=== PATIENT | male | born 1960 | race Hispanic/Latino ===

== ENCOUNTER 2020-07-12 07:24 | Day surgery (SDC) | payer BC ==
[2020-07-09 12:55] LABS: Basophils % 0.8 % (0-1.3); Hematocrit 47.7 % (39.6-49.0); Lymphocytes % 29.7 % (15.3-44.8); MPV 9.1 fL (7.6-11.3); RBC Red Blood Cell Count 5.45 M/uL (4.33-5.43)
[2020-07-09 13:09] LABS: Potassium 3.9 mmol/L (3.5-5.1)
--- NOTE | 2020-07-09 13:33 | RAD REPORT ---
EXAM DESCRIPTION: RAD - Chest Pa And Lat (2 Views) - 07/09/2020 1:25 pm CLINICAL HISTORY: PREOP, SAME DAY SURGERY Chest pain. COMPARISON: No comparisons FINDINGS: The lungs are clear. The heart is normal in size. No displaced fractures. IMPRESSION: No acute or concerning finding suspected.
--- NOTE | 2020-07-10 07:56 | EKG ---
Test Date: 2020-07-09 Test Time: 12:59:31 Land Inspector: JESSICA MEASUREMENT RESULTS: Intervals: Rate: 72 MT: 140 QRSD: 82 QT: 378 QTc: 413 [place]: P: 20 MT: 140 QRS: -7 T: 3 INTERPRETIVE STATEMENTS: Normal sinus rhythm with sinus arrhythmia Normal ECG No previous ECG available for comparison Electronically Signed On 07-10-20 07:54:18 MANAGER OF DISASTER RECOVERY by Marcus Oviedo
[2020-07-12] MEDS ORDERED: CEFAZOLIN/SWI 1gm 1 GM/10 ML SYR ONE (07:54)
[2020-07-12] MEDS ORDERED: Ringers Lactate 1,000 ML IV ONE (07:54)
[2020-07-12] MEDS ORDERED: BUPIVACAINE 0.5% PF 10 ML VIAL ONE (08:25)
[2020-07-12] MEDS ORDERED: FENTANYL CITR 100 MCG/2 ML ONE (08:43)
[2020-07-12] MEDS ORDERED: MIDAZOLAM HCL 2 MG/2 ML INJ ONE (08:43)
[2020-07-12] MEDS ORDERED: LIDOCAINE 1% MPF 5 ML VIAL ONE (08:43)
[2020-07-12] MEDS ORDERED: propofoL 200 MG/20 ML VIAL IV ONE (08:43)
[2020-07-12] MEDS ORDERED: KETOROLAC 30 MG/ML INJ ONE (09:05)
--- NOTE | 2020-07-12 09:05 | P.BOP ---
Preoperative diagnosis: right thigh intramuscular mass Postoperative diagnosis: same Primary procedure: Excisional biopsy of right thigh intramuscular mass 9x6cm Estimated blood loss: <10cc Specimen: mass Findings: right thigh intramuscular mass Anesthesia: General Complications: None Transferred to: Recovery Room Condition: Good
[2020-07-12] MEDS ORDERED: ONDANSETRON 4 MG/2 ML VIAL ONE (09:20)
[2020-07-12] MEDS ORDERED: CODEINE 30MG/APAP 300MG TAB ONE (10:31)
[2020-07-12 10:44] VITALS: BP 120/75; TEMP 96.6; O2SAT 96
--- NOTE | 2020-07-12 11:40 | DS ---
Date of Discharge: 07/12/2020 Diagnosis: Right thigh intramuscular mass. Procedure: Excisional biopsy of right thigh intramuscular mass. Disposition: Home. Activity: As tolerated. No heavy lifting. Plan: Follow up in my office in 1 week. Call for an appointment at [phone]. Keep area dry for 48 hours, then may shower. Keep Steri-Strips intact. Medications: Include Tylenol No.3 q.4 hours p.r.n. pain, Bactrim DS p.o. b.i.d. CATIA/WILLIAM Voice ID: [id number] Report ID: [id number]
--- NOTE | 2020-07-12 11:40 | OP ---
Date of Procedure: 07/12/2020 Surgeon: Ángel Moura MD Preoperative Diagnosis: Right thigh intramuscular mass, tender. Postoperative Diagnosis: Right thigh intramuscular mass, tender. Procedure Performed: Excisional biopsy of right thigh intramuscular tender mass, 9 x 6 cm. Specimen: Intramuscular mass. Findings: Right thigh intramuscular mass. Indications: This is the case of a 60-year-old patient who has a mass in the right inner thigh lower distal region. Increasing in size, giving pain and discomfort. He wants that excised. The benefit s, alternatives, and risks of excision were fully explained which include, but not limited to infecti on, bleeding, damage to adjacent structures, anesthesia complication, chronic numbness, chronic pain, CA and even . He also understands this may not relieve any symptoms. He may need more than one surgical intervention. He understands the chance of recurrence. The area of concern was marked by me and the patient in the holding room. Description Of Procedure: The patient was brought to the operating room, placed in supine position. Anesthesia was done without complication. Right thigh was prepped and draped in a usual sterile fas hion. A time-out was called. The area of concern was previously marked, so we were able to inject l ocal anesthetic and then make an incision over the area of the mass. Incision was carried down to de ep subcutaneous tissue and then after that, we went into the area of the right medial thigh. We noti rene noted the patient has an intramuscular mass. The muscle fibers were . We did not cut t hem and we were able to enucleate this mass after we did that. The area was irrigated. Hemostasis w as obtained. The muscle was approximated with chromic. The subcutaneous tissue was closed in layers with 3-0 chromic in 2 layers and then 4-0 PDS. Sponge count, instrument counts correct. Hemostasis was obtained before closure. The patient tolerated the procedure well. The patient was sent to [facility] in stable condition. CATIA/WILLIAM Voice ID: [id number] Report ID: [id number]
== END 2020-07-12 10:35 | disposition home or self-care (01) ==
LOC: OR 07:24
PROVIDERS: ATTEND Surgery
PROC: 0JBL0ZZ Excision of Right Upper Leg Subcutaneous Tissue and Fascia, Open Approach (ICD-10-PCS; 2020-07-12)
PROC: 0JQL0ZZ Repair Right Upper Leg Subcutaneous Tissue and Fascia, Open Approach (ICD-10-PCS; principal; 2020-07-12 08:30)
DX: D17.9 Benign lipomatous neoplasm, unspecified (principal); Z20.822 Contact with and (suspected) exposure to COVID-19
CPT/HCPCS: 93005; 85025; 80048; 36415; 88304; 71046; 11406; 12034; U0002; J2704; J2250; J3010; J0690; J7120; J2405; 88305

== ENCOUNTER 2022-05-26 09:12 | Emergency (ER) | payer BC ==
--- OUTSIDE RECORDS SUMMARY | 2022-05-26 09:15 | XMS REPORT | Continuity of Care Document ---
:1960 Author Organization [facility] t Address [address] [place] [address] Care Team Providers Name Role Phone Pcp, Patient Does Not Have A Primary Care Physician +[id number] SARI TENORIO Attending Clinician Unavailable Vaccine, Ang Db Cbc Fam Attending Clinician Unavailable Sari Tenorio MD Attending Clinician Doctor Unassigned, [place] Attending Clinician Unavailable Payers Payer Name Policy Type Policy Number Effective Date Expiration Date Rodrick berg [facility] [id number] 2017 00:00:00 [facility] [id number] 2017 00:00:00 BLUE/ESSENTIALS Problems This patient has no known problems. Allergies, Adverse Reactions, Alerts Allergy Allergy Status Severity Reaction(s) Onset Inactive Treating Comm ents Source Name Type Date Date Clinician NO KNOWN Drug Active Univers ALLERGIE Class ity of [facility] Social History Social Habit Start Date Stop Date Quantity Comments Source Exposure to Not sure [facility] SARS-CoV-2 (event) Medica l Branch Sex Assigned At [birth year] [facility] 00:00:00 00:00:00 Medical Branch Smoking Status Start Date Stop Date Source Unknown if ever smoked [facility] Medications This patient has no known medications. Immunizations Ordered Filled Immunization Date Status Comments [facility] e Immunization Name Name SARS-COV-2 COVID-19 2021-04-22 Completed Unive rsity of PFIZER VACCINE 00:00:00 [facility] Covid-19 Vaccine 2020-07-[address] [facility] MRNA (PF) 12yr+ 00:00:00 Medical C enter (Pfizer/BioNTech)(I [id number]) Covid-19 Vaccine 2020-07-[address] [facility] MRNA (PF) 12yr+ 00:00:00 Medical C enter (Pfizer/BioNTech)(I [id number]) Procedures Procedure Date / Time Performed Performing Clinician Sourc e SARS-COV-2 COVID-19 2021-04-22 21:15:50 Doctor Unassigned, No [facility] [place] VACCINE,0.3ML,IM Name Medical Branch (PFIZER) CONSENT/REFUSAL FOR 2021-04-22 19:59:41 Doctor Unassigned, No [facility] [place] DIAGNOSIS AND Name Medical Branch TREATMENT Plan of Care Planned Activity Planned Date Details Comments Source Future Scheduled 2022-05-[address] [facility] Test 00:00:00 (12+) [code = Medical Center DEPRESSION SCREENING (12+)] Future Scheduled 2022-01-12 INFLUENZA VACCINE (#1) [facility] 00:00:00 [code = INFLUENZA Medical Ce nter VACCINE (#1)] Future Scheduled 2020-12-29 COVID-19 VACCINE (3 - [facility] 00:00:00 Booster for Pfizer Medical C enter series) [code = COVID-19 VACCINE (3 - Booster for Pfizer series)] Future Scheduled 2009 SHINGLES VACCINES ([address] [facility] Test 00:00:00 2) [code = SHINGLES Medical Center VACCINES (1 of 2)] Future Scheduled 1994 Lipid panel (procedure) [facility] Test 00:00:00 [code = 01672556] Medical Ce nter Future Scheduled 1978 DTAP/TDAP/TD VACCINES [facility] 00:00:00 (1 - Tdap) [code = Medical C enter DTAP/TDAP/TD VACCINES (1 - Tdap)] Future Scheduled 1977 HEPATITIS C SCREENING [facility] 00:00:00 [code = HEPATITIS C Medical Center SCREENING] Future Scheduled [address] [facility] Test 00:00:00 Counseling and Medical Cente r Screening (12+) [code = Tobacco Cessation Counseling and Screening (12+)] Future Scheduled 1959 CT Colonography (combo) [facility] Test 00:00:00 [code = CT Colonography [facility] (combo)] Future Scheduled 1959 Screening for malignant [facility] Test 00:00:00 neoplasm of colon Medical Ce nter (procedure) [code = 361666124] Future Scheduled 1959 Screening for malignant [facility] Test 00:00:00 neoplasm of colon Medical Ce nter (procedure) [code = 534512772] Future Scheduled 1959 Screening for malignant [facility] Test 00:00:00 neoplasm of colon Medical Ce nter (procedure) [code = 672620662] Future Scheduled 1959 Screening for malignant [facility] Test 00:00:00 neoplasm of colon Medical Ce nter (procedure) [code = 262981339] Future Scheduled 1960 Sigmoidoscopy [code = [facility] 00:00:00 Sigmoidoscopy] Medical Cente r Encounters Start End Encounter Admission Attending Care Care Encounter Source Date/Time Date/Time Type Type Clinicians Facility Department ID 2021-04-22 2021-04-22 Outpatient R [facility] [id number] [facility] 14:20[facility]00 [facility] 2021-04-22 2021-04-22 Imm/Inj Vaccine, Ang Db Cbc Fam [facility] [id number]. [id number] Univers 14:04:46 14:14:46 Visit [facility] [id number] ity of [place] [id number] Severiano as MAXWELL?BLEA [id number] [address] MEDICAL OFFICE BUILDING 2021-04-22 2021-04-22 Orders Doctor EBEN [id number] Univers 00:00:00 00:00:00 Only Unassigned, BENY [id number] ity of [place] [facility] [id number] Severiano as [id number] [address] 2020-07-29 2020-07-29 Outpatient [facility] [id number] [facility] 00:00:00 00:00:00 2020-07-08 2020-07-08 Outpatient [facility] [id number] [facility] 00:00:00 00:00:00 Results This patient has no known results.
--- NOTE | 2022-05-26 10:01 | RAD REPORT ---
EXAM DESCRIPTION: CT - Head Brain Wo Cont - 05/26/2022 9:47 am CLINICAL HISTORY: dizzy Headache, drowsiness COMPARISON: No comparisons TECHNIQUE: All CT scans are performed using dose optimization technique as appropriate and may inclu de automated exposure control or mA/KV adjustment according to patient size. FINDINGS: No intracranial hemorrhage, hydrocephalus or extra-axial fluid collection.No areas of brai n edema or evidence of midline shift. The paranasal sinuses and mastoids are clear. The calvarium is intact. IMPRESSION: No acute intracranial abnormality.
--- NOTE | 2022-05-26 10:08 | RAD REPORT ---
EXAM DESCRIPTION: RAD - Chest Single View - 05/26/2022 9:49 am CLINICAL HISTORY: dizzy Chest pain. COMPARISON: Chest Pa And Lat (2 Views) dated 07/09/2020 FINDINGS: Portable technique limits examination quality. The lungs are grossly clear. The heart is normal in size. No displaced fractures. IMPRESSION: No acute intrathoracic process suspected.
[2022-05-26 10:13] LABS: Absolute Lymphocytes (CBC) 2.3 K/uL (0.7-4.9); Hematocrit 47.4 % (39.6-49.0); Lymphocytes % 36.2 % (15.3-44.8); MCV 88.5 fL (80-100); MPV 8.2 fL (7.6-11.3); RBC Red Blood Cell Count 5.36 M/uL (4.33-5.43)
[2022-05-26 10:16] LABS: Protime INR 1.01
[2022-05-26 10:38] LABS: SARS-CoV-2 Antigen Rapid Res Negative (Negative)
[2022-05-26 10:44] LABS: Albumin 4.1 g/dL (3.4-5.0); Bilirubin Direct 0.2 mg/dL (0-0.2); Bilirubin Total 0.7 mg/dL (0.2-1.0); Magnesium 2.3 mg/dL (1.6-2.4); Potassium 4.3 mmol/L (3.5-5.1); Protein, Total 7.9 g/dL (6.4-8.2); Troponin High Sensitivity 13.8 pg/mL (<58.9)
--- NOTE | 2022-05-26 11:40 | RAD REPORT ---
EXAM DESCRIPTION: CT - Head angio - 05/26/2022 11:26 am CLINICAL HISTORY: lightheadedness Headache, drowsiness COMPARISON: Head Brain Wo Cont dated 05/26/2022 TECHNIQUE: CT angiography of the head was performed with MIPs. All CT scans are performed using dose optimization technique as appropriate and may include automated exposure control or mA/KV adjustment according to patient size. FINDINGS: No evidence of aneurysm is detected. No flow-limiting stenosis or vascular malformation id entified. Antegrade flow is seen in the vertebral arteries. The vertebral arteries are codominant. The visualized dural venous sinuses are patent. IMPRESSION: No significant flow abnormality is detected.
--- NOTE | 2022-05-26 12:21 | RAD REPORT ---
EXAM DESCRIPTION: RAD - Hand Left 2 View - 05/26/2022 12:15 pm CLINICAL HISTORY: PAIN COMPARISON: No comparisons FINDINGS: No evidence of fracture or dislocation.
--- NOTE | 2022-05-26 12:22 | RAD REPORT ---
EXAM DESCRIPTION: RAD - Hand Right 2 View - 05/26/2022 12:15 pm CLINICAL HISTORY: PAIN COMPARISON: No comparisons FINDINGS: No fracture or dislocation is seen.
--- NOTE | 2022-05-26 12:33 | ER ---
Nurse's Notes [facility] Name: Cherie Decker Age: 62 yrs Sex: Male : 1960 Arrival Date: 05/26/2022 Time: 09:18 Bed 20 Private MD: Beth Ash C Diagnosis: Syncope Near Presentation: 05/26 09:25 Chief complaint: Patient states: he started feeling dizzy on Sunday05/23/2022, and two ap3 of the times he started feeling dizzy he got nauseated. patient states that the symptoms have been improving since Sunday, however he spoke with his PCP who recommended he come get evaluated. Coronavirus screen: At this time, the client does not indicate any symptoms associated with coronavirus-19. Ebola Screen: No symptoms or risks identified at this time. Initial Sepsis Screen: Does the patient meet any 2 criteria? No. Patient's initial sepsis screen is negative. Does the patient have a suspected source of infection? No. Patient's initial sepsis screen is negative. Risk Assessment: Do you want to hurt yourself or someone else? Patient reports no desire to harm self or others. Onset of symptoms was May 23, 2022. 09:25 Method Of Arrival: Ambulatory ap3 09:25 Acuity: CHEIKH 3 ap3 Triage Assessment: 09:28 General: Appears in no apparent distress. Behavior is calm, cooperative. Pain: Denies ap3 pain. Neuro: Level of Consciousness is awake, alert, obeys commands, Reports dizziness, since 05/23/2022, but states symptoms have been improving. Cardiovascular: Patient's skin is warm and dry. Respiratory: Airway is patent Respiratory effort is even, unlabored, Respiratory pattern is regular, symmetrical. GI: Reports nausea is only reported on Sunday05/23/2022. Historical: - Allergies: 09:27 No Known Allergies; ap3 - Home Meds: 09:27 atorvastatin oral [Active]; ap3 - PMHx: 09:27 Hypercholesterolemia; ap3 - Immunization history:: Client reports receiving the 2nd dose of the Covid vaccine, Flu vaccine is not up to date. - Social history:: Smoking status: Patient denies any tobacco usage or history of. Patient uses alcohol, only on a social basis. Screenin:28 Abuse screen: Denies threats or abuse. Nutritional screening: No deficits noted. ap3 Tuberculosis screening: No symptoms or risk factors identified. 13:04 [facility] ED Fall Risk Assessment (Adult) History of falling in the last 3 months, kb3 including since admission No falls in past 3 months (0 pts) Confusion or Disorientation No (0 pts) Intoxicated or Sedated No (0 pts) Impaired Gait No (0 pts) Mobility Assist Device Used No (0 pt) Altered Elimination No (0 pt) Score/Fall Risk Level 0 - 2 = Low Risk Oriented to surroundings, Maintained a safe environment, Educated pt \T\ family on fall prevention, incl call for assistance when getting out of bed, Assessed \T\ reinforced patient's understanding of fall precautions, Provided non-skid footwear, Hourly rounding (assess needs \T\ fall precautionary measures) done, Used ambulatory aids as needed (educated on \T\ assisted with), Used gait belt as appropriate. Assessment: 10:31 Reassessment: Patient appears in no apparent distress at this time. Patient and/or hb family updated on plan of care and expected duration. Pain level reassessed. Patient is alert, oriented x 3, equal unlabored respirations, skin warm/dry/pink. 12:05 General: Received care of pt from Apple VALLE. PT is AAO x4, denies pain. Reports feeling kb3 better. Updated regarding POC. Pt with no questions at this time. 12:05 GI: Reports nausea, improved. kb3 12:05 GI: Abdomen is flat, Bowel sounds present X 4 quads. Abd is soft and non tender. kb3 12:20 General: Updated pt regarding repeat troponin and EKG. If normal, pt to be discharged. kb3 Vital Signs: 09:25 BP 164 / 94; Pulse 77; Resp 17; Temp 98.2; Pulse Ox 98% ; Weight 88.9 kg; Height 5 ft. ap3 7 in. (170.18 cm); 10:32 BP 129 / 88; Pulse 72; Resp 15; Pulse Ox 99% on R/A; hb 11:07 BP 128 / 88; Pulse 65; Resp 14; Pulse Ox 97% on R/A; hb 12:30 BP 131 / 88; Pulse 67; Resp 18; Pulse Ox 99% on R/A; kb3 13:00 BP 144 / 87; Pulse 72; Resp 18; Pulse Ox 98% ; kb3 13:30 BP 130 / 85; Pulse 63; Resp 20; Pulse Ox 96% ; kb3 09:25 Body Mass Index 30.70 (88.90 kg, 170.18 cm) ap3 ED Course: 09:18 Patient arrived in ED. mr 09:18 Beth Ash MD is Private Physician. mr 09:27 Triage completed. ap3 09:29 Arm band placed on right wrist. ap3 09:29 Patient has correct armband on for positive identification. Adult w/ patient. ap3 09:30 Apple Maradiaga, RN is Primary Nurse. iw 09:33 Karyn Faust FNP-C is PHCP. snw 09:33 Yosef Etienne MD is Attending Physician. snw 09:49 CT Head Brain wo Cont In Process Unspecified. EDMS 09:50 XRAY Chest (1 view) In Process Unspecified. EDMS 10:05 Basic Metabolic Panel Sent. rs5 10:05 CBC with Diff Sent. rs5 10:05 LFT's Sent. rs5 10:05 Magnesium Sent. rs5 10:05 NT PRO-BNP Sent. rs5 10:05 PT-INR Sent. rs5 10:05 Troponin HS Sent. rs5 10:06 Inserted saline lock: 20 gauge in left antecubital area, using aseptic technique. Blood rs5 collected. 10:11 SARS RAPID Sent. rs5 10:12 COVID swab sent to lab. rs5 11:27 CT Head Angio In Process Unspecified. EDMS 12:17 Hand Left 2 View XRAY In Process Unspecified. EDMS 12:17 Hand Right 2 View XRAY In Process Unspecified. EDMS 12:32 Beth Ash MD is Referral Physician. snw 12:42 Troponin HS Sent. kb3 13:04 No provider procedures requiring assistance completed. kb3 13:52 IV discontinued, intact, bleeding controlled, No redness/swelling at site. Pressure kb3 dressing applied. Administered Medications: 12:59 Drug: Aspirin 81 mg Route: PO; kb3 13:10 Follow up: Response: No adverse reaction kb3 Medication: 13:04 VIS not applicable for this client. kb3 Outcome: 12:32 Discharge ordered by MD. snw 13:52 Discharged to home ambulatory, with family. kb3 13:52 Condition: stable 13:52 Discharge instructions given to patient, family, Instructed on discharge instructions, follow up and referral plans. medication usage, Demonstrated understanding of instructions, follow-up care, medications. 13:53 Patient left the ED. kb3 Signatures: Dispatcher [employer] EDMS Karyn Faust, DEWAYNE-C [employer]SEMBLER [facility]-Morisw Valdes Fidelia MaradiagaApple, RN Karen Leroy RN RN Willa Cortes RN RN ap3 Bernarda Martinez RN RN 3 Mitch Maza rs5
--- NOTE | 2022-05-26 12:33 | EDPHYS ---
Physician Documentation [facility] Name: Cherie Decker Age: 62 yrs Sex: Male : 1960 Arrival Date: 05/26/2022 Time: 09:18 Bed 20 Private MD: Beth Ash C ED Physician Yosef Etienne HPI: 05/26 09:37 This 62 yrs old Male presents to ER via Ambulatory with complaints of snw Dizziness, Nausea, Headache. 09:37 The patient or guardian reports chest pain that is located primarily in the "just feel snw off", vague nausea. 09:55 The patient has not experienced similar symptoms in the past. The patient has been snw recently seen by a physician: the patient's primary care provider, Dr. Ash yesterday, with similar presenting complaints, and was sent to the [facility] Emergency Department for further evaluation. Pt states he is feeling better but has had intermittent nausea, lightheadedness x 4 days. . Historical: - Allergies: 09:27 No Known Allergies; ap3 - Home Meds: 09:27 atorvastatin oral [Active]; ap3 - PMHx: 09:27 Hypercholesterolemia; ap3 - Immunization history:: Client reports receiving the 2nd dose of the Covid vaccine, Flu vaccine is not up to date. - Social history:: Smoking status: Patient denies any tobacco usage or history of. Patient uses alcohol, only on a social basis. ROS: 09:55 Constitutional: Negative for fever, chills, and weight loss, Eyes: Negative for injury, snw pain, redness, and discharge, ENT: Negative for injury, pain, and discharge, Neck: Negative for injury, pain, and swelling, Cardiovascular: Negative for chest pain, palpitations, and edema, Respiratory: Negative for shortness of breath, cough, wheezing, and pleuritic chest pain. 09:55 Back: Negative for injury and pain, : Negative for injury, bleeding, discharge, and swelling, MS/Extremity: Negative for injury and deformity, Skin: Negative for injury, rash, and discoloration. 09:55 Abdomen/GI: Positive for nausea. 09:55 Neuro: Positive for dizziness, headache. Exam: 09:57 Head/Face: Normocephalic, atraumatic. Eyes: Pupils equal round and reactive to light, snw extra-ocular motions intact. Lids and lashes normal. Conjunctiva and sclera are non-icteric and not injected. Cornea within normal limits. Periorbital areas with no swelling, redness, or edema. ENT: Nares patent. No nasal discharge, no septal abnormalities noted. Tympanic membranes are normal and external auditory canals are clear. Oropharynx with no redness, swelling, or masses, exudates, or evidence of obstruction, uvula midline. Mucous membranes moist. Neck: Trachea midline, no thyromegaly or masses palpated, and no cervical lymphadenopathy. Supple, full range of motion without nuchal rigidity, or vertebral point tenderness. No Meningismus. Chest/axilla: Normal chest wall appearance and motion. Nontender with no deformity. No lesions are appreciated. Cardiovascular: Regular rate and rhythm with a normal S1 and S2. No gallops, murmurs, or rubs. Normal PMI, no JVD. No pulse deficits. Respiratory: Lungs have equal breath sounds bilaterally, clear to auscultation and percussion. No rales, rhonchi or wheezes noted. No increased work of breathing, no retractions or nasal flaring. Abdomen/GI: Soft, non-tender, with normal bowel sounds. No distension or tympany. No guarding or rebound. No evidence of tenderness throughout. Back: No spinal tenderness. No costovertebral tenderness. Full range of motion. Skin: Warm, dry with normal turgor. Normal color with no rashes, no lesions, and no evidence of cellulitis. MS/ Extremity: Pulses equal, no cyanosis. Neurovascular intact. Full, normal range of motion. Neuro: Awake and alert, GCS 15, oriented to person, place, time, and situation. Cranial nerves II-XII grossly intact. Motor strength 5/5 in all extremities. Sensory grossly intact. Cerebellar exam normal. Normal gait. Psych: Awake, alert, with orientation to person, place and time. Behavior, mood, and affect are within normal limits. 09:57 Constitutional: The patient appears alert, awake. Vital Signs: 09:25 BP 164 / 94; Pulse 77; Resp 17; Temp 98.2; Pulse Ox 98% ; Weight 88.9 kg; Height 5 ft. ap3 7 in. (170.18 cm); 10:32 BP 129 / 88; Pulse 72; Resp 15; Pulse Ox 99% on R/A; hb 11:07 BP 128 / 88; Pulse 65; Resp 14; Pulse Ox 97% on R/A; hb 12:30 BP 131 / 88; Pulse 67; Resp 18; Pulse Ox 99% on R/A; kb3 13:00 BP 144 / 87; Pulse 72; Resp 18; Pulse Ox 98% ; kb3 13:30 BP 130 / 85; Pulse 63; Resp 20; Pulse Ox 96% ; kb3 09:25 Body Mass Index 30.70 (88.90 kg, 170.18 cm) ap3 MDM: 09:55 Patient medically screened. mic 12:33 Differential diagnosis: abnormal EKG, anxiety, coronary artery disease cva, tia. HEART snw Score: History: Moderately Suspicious (1), ECG: Non specific repolarization disturbance / LBTB / PM (1), Age: > 45 and < 65 years (1), Risk Factors: 1 or 2 risk factors (1), Troponin: < or = 1 x Normal Limit (0), Total Score = 3. The patient was given aspirin in the Emergency Department. Data reviewed: vital signs, nurses notes. Management of patient was discussed with the following: Primary Care Provider: left message re: results of workup. Counseling: I had a detailed discussion with the patient and/or guardian regarding: the historical points, exam findings, and any diagnostic results supporting the discharge/admit diagnosis, the presence of at least one elevated blood pressure reading (>120/80) during this emergency department visit, lab results, radiology results, the need for outpatient follow up, for definitive care, to return to the emergency department if symptoms worsen or persist or if there are any questions or concerns that arise at home. Special discussion: Based on the patient's history, exam, and Dx evaluation, there is no indication for emergent intervention or inpatient Tx. It is understood by the patient/guardian that if the Sx's persist or worsen they need to return immediately for re-evaluation. 05/26 09:34 Order name: Basic Metabolic Panel; Complete Time: 11:04 snw 05/26 09:34 Order name: CBC with Diff; Complete Time: 10:30 snw 05/26 09:34 Order name: LFT's; Complete Time: 11:04 snw 05/26 09:34 Order name: Magnesium; Complete Time: 11:04 snw 01/13 09:34 Order name: NT PRO-BNP; Complete Time: 11:04 05/26 09:34 Order name: PT-INR; Complete Time: 10:30 05/26 09:34 Order name: Troponin HS; Complete Time: 11:04 05/26 09:34 Order name: XRAY Chest (1 view); Complete Time: 10:14 05/26 09:34 Order name: CT Head Brain wo Cont; Complete Time: 10:01 05/26 09:55 Order name: SARS RAPID; Complete Time: 10:42 05/26 11:06 Order name: CT Head Angio; Complete Time: 11:45 05/26 11:45 Order name: Hand Left 2 View XRAY; Complete Time: 12:26 05/26 11:45 Order name: Hand Right 2 View XRAY; Complete Time: 12:26 05/26 12:05 Order name: Troponin HS; Complete Time: 13:11 05/26 09:34 Order name: EKG; Complete Time: 09:35 05/26 09:34 Order name: Cardiac monitoring; Complete Time: 10:05 05/26 09:34 Order name: EKG - Nurse/Tech; Complete Time: 10:04 05/26 09:34 Order name: IV Saline Lock; Complete Time: 10:05 05/26 09:34 Order name: Labs collected and sent; Complete Time: 10:05 05/26 09:34 Order name: O2 Per Protocol; Complete Time: 10:06 05/26 09:34 Order name: O2 Sat Monitoring; Complete Time: 10:06 05/26 12:05 Order name: EKG; Complete Time: 12:05 05/26 12:05 Order name: EKG - Nurse/Tech; Complete Time: 12:57 snw EC:00 Rate is 66 beats/min. Rhythm is regular. QRS [place] is Normal. Q waves are Present in snw leads I, aVL, V1. T waves are Inverted in lead III. ST Segment is elevated in leads V1, V2. Clinical impression: NSR w/ Non-specific ST/T Changes. 12:57 Rate is 63 beats/min. Rhythm is regular. QRS [place] is Normal. ND interval is normal. T snw waves are Inverted in leads III, aVF. Clinical impression: NSR w/ Non-specific ST/T Changes and J point elevation. Administered Medications: 12:59 Drug: Aspirin 81 mg Route: PO; kb3 13:10 Follow up: Response: No adverse reaction kb3 Disposition Summary: 05/26/22 12:32 Discharge Ordered Location: Home snw Condition: Stable snw Diagnosis - Syncope Near snw Followup: snw - With: Emergency Department - When: As needed - Reason: Worsening of condition Followup: snw - With: Beth Ash MD - When: 2 - 3 days - Reason: Recheck today's complaints, Continuance of care, Re-evaluation by your physician Discharge Instructions: - Discharge Summary Sheet snw - Dizziness snw - Near-Syncope snw - Aspirin and Your Heart snw - Rehydration, Adult snw Forms: - Medication Reconciliation Form snw - Thank You Letter snw - Antibiotic Education snw - Prescription Opioid Use snw Signatures: Dispatcher [employer] EDMS Yosef Etienne MD MD cha Waters, Shelly, COFFEE BAR ATTENDANT-C COFFEE BAR ATTENDANT-Csnw Willa Cortes, RN RN ap3 Bernarda Martinez, RN RN kb3
[2022-05-26] MEDS ORDERED: ASPIRIN 81 MG CHEWABLE TABLET ONE (12:54)
[2022-05-26 14:40] VITALS: BP 130/85; O2SAT 96
--- NOTE | 2022-05-28 14:25 | EKG ---
Test Date: 2022-05-26 Test Time: 09:58:13 Sampling Expert: TERE MEASUREMENT RESULTS: Intervals: Rate: 66 IA: 150 QRSD: 78 QT: 394 QTc: 413 [place]: P: 2 IA: 150 QRS: -14 T: -2 INTERPRETIVE STATEMENTS: Normal sinus rhythm Minimal voltage criteria for LVH, may be normal variant Borderline ECG Compared to ECG 07/09/2020 12:59:31 Left ventricular hypertrophy now present Sinus arrhythmia no longer present Electronically Signed On 05-28-22 14:23:20 [employer] AND [employer] INSTRUCTOR by Marcus Oviedo
--- NOTE | 2022-05-28 14:25 | EKG ---
Test Date: 2022-05-26 Test Time: 12:54:09 Auditor Tax: LINDA MEASUREMENT RESULTS: Intervals: Rate: 63 RI: 142 QRSD: 82 QT: 398 QTc: 407 [place]: P: 31 RI: 142 QRS: 1 T: -13 INTERPRETIVE STATEMENTS: Normal sinus rhythm T wave abnormality, consider inferior ischemia Abnormal ECG Compared to ECG 05/26/2022 09:58:13 T-wave abnormality now present Possible ischemia now present Left ventricular hypertrophy no longer present Electronically Signed On 05-28-22 14:23:14 MODULAR HOME CREW MEMBER by Marcus Oviedo
== END 2022-05-26 13:53 | disposition home or self-care (01) ==
LOC: ER 09:12
DX: R55 Syncope and collapse (principal); R51.9 Headache, unspecified; R11.0 Nausea; M79.642 Pain in left hand; M79.641 Pain in right hand; Z20.822 Contact with and (suspected) exposure to COVID-19
CPT/HCPCS: 93005 ×2; 85025; 80048; 36415; 83735; 85610; 80076; 84484 ×2; 83880; 70450; 70496; 71045; 73120 ×2; 99284; 87811; Q9967